=== PATIENT | male | born 1995 | race Two or more races ===

== ENCOUNTER 2017-04-13 18:10 | Emergency (ER) | payer SELFPAY ==
[~2017-04-13] VITALS: Ht 157.5 cm; Wt 73.0 kg
[2017-04-13 18:35] VITALS: BP 123/72
== END 2017-04-13 23:25 | disposition left against medical advice (07) ==
LOC: ER 18:10
DX: M79.671 Pain in right foot (principal); Z53.21 Procedure and treatment not carried out due to patient leaving prior to being seen by health care provider

== ENCOUNTER 2018-04-27 23:32 | Emergency (ER) | payer SELFPAY ==
[~2018-04-27] VITALS: Ht 157.5 cm; Wt 81.6 kg
[2018-04-27 23:34] VITALS: BP 122/76
== END 2018-04-28 00:30 | disposition left against medical advice (07) ==
LOC: ER 23:32
DX: R10.30 Lower abdominal pain, unspecified (principal); Z53.21 Procedure and treatment not carried out due to patient leaving prior to being seen by health care provider

== ENCOUNTER 2024-03-02 08:07 | Emergency (ER) | payer MEDICAID ==
[~2024-03-02] VITALS: Ht 170.2 cm; Wt 95.0 kg
[2024-03-02 08:15] VITALS: BP 117/73; PULSE 85; RESP 18; TEMP 97.7; O2SAT 98
[2024-03-02 08:54] LABS: BASOPHILS % 0.4 % (0.0-2.0); EOSINOPHILS % 0.4 % (0.0-5.0); HEMATOCRIT. 54.2 % (42.0-52.0); HEMOGLOBIN. 17.8 g/dL (14.0-18.0); LYMPHOCYTES % 15.1 % (20.0-50.0); MEAN CORPUSCULAR HEMOGLOBIN 30.2 pg (28.0-32.0); MEAN CORPUSCULAR HGB CONC 32.9 g/dL (31.0-37.0); MEAN CORPUSCULAR VOLUME 91.7 fL (80.0-94.0); MEAN PLATELET VOLUME 9.1 fl (7.4-10.4); MONOCYTES % 4.7 % (2.0-8.0); NEUTROPHILS % 79.4 % (40.0-76.0); PLATELET 175 x1000/uL (130-400); RED BLOOD CELL COUNT 5.91 mill/uL (4.7-6.1); RED CELL DISTRIBUTION WIDTH 14.1 % (11.6-14.6); WHITE BLOOD COUNT 6.5 x1000/uL (4.5-11.0)
[2024-03-02 09:13] LABS: CHLORIDE 105 mEq/L (98-107); POTASSIUM 4.2 mEq/L (3.5-5.1); SODIUM 139 mEq/L (136-145)
[2024-03-02 09:14] LABS: CARBON DIOXIDE 21 mEq/L (21-32)
[2024-03-02 09:19] LABS: GLUCOSE 120 mg/dL (70-105)
[2024-03-02 09:20] LABS: UREA NITROGEN BLOOD 9 mg/dL (9-23)
[2024-03-02 09:21] LABS: ALANINE AMINOTRANSFERASE 17 IU/L (10-49); ALBUMIN 4.8 g/dL (3.2-4.8); ASPARTATE AMINOTRANSFERASE 20 IU/L (<34)
[2024-03-02 09:22] LABS: BILIRUBIN DIRECT 0.3 mg/dL (<=3.0); BILIRUBIN TOTAL 0.9 mg/dL (0.1-1.0)
[2024-03-02] MEDS: ONDANSETRON 4MG ODT PO NR (10:00)
[2024-03-02] MEDS ORDERED: FAMOTIDINE 20MG TABLET PO ONE (10:00)
[2024-03-02] MEDS: DICYCLOMINE 10 MG/5 ML ORAL SYR PO ONE (10:00)
[2024-03-02] MEDS ORDERED: MAGNESIUM/ALUMINUM HYDROXIDE/SIMETHICONE 30ML UDC PO ONE (10:00)
[2024-03-02] MEDS: MAGNESIUM/ALUMINUM HYDROXIDE/SIMETHICONE 30ML UDC PO NR (11:45)
[2024-03-02] MEDS: FAMOTIDINE 20MG TABLET PO NR (11:45)
== END 2024-03-02 11:56 | disposition home or self-care (01) ==
LOC: ER 08:07
DX: K29.70 Gastritis, unspecified, without bleeding (principal); F12.90 Cannabis use, unspecified, uncomplicated; Z98.890 Other specified postprocedural states
CPT/HCPCS: 99284; 80076; 80048; 85025; 36415; Q0162

== ENCOUNTER 2025-04-01 11:53 | Emergency (ER) | payer MEDICAID ==
[~2025-04-01] VITALS: Ht 165.1 cm; Wt 82.0 kg
[2025-04-01 12:02] VITALS: TEMP 36.9; O2SAT 97
[2025-04-01 13:15] LABS: BASOPHILS % 1.2 % (0.0-2.0); EOSINOPHILS % 2.6 % (0.0-5.0); HEMATOCRIT. 51.9 % (42.0-52.0); HEMOGLOBIN. 17.3 g/dL (14.0-18.0); LYMPHOCYTES % 49.5 % (20.0-50.0); MEAN PLATELET VOLUME 9.0 fl (7.4-10.4); MONOCYTES % 8.1 % (2.0-8.0); NEUTROPHILS % 38.6 % (40.0-76.0); PLATELET 163 x1000/uL (130-400); RED BLOOD CELL COUNT 5.77 mill/uL (4.7-6.1); RED CELL DISTRIBUTION WIDTH 13.9 % (11.6-14.6)
[2025-04-01] MEDS: IBUPROFEN 800MG TABLET PO ONE (13:16)
[2025-04-01 13:26] LABS: CLARITY URINE CLEAR (CLEAR); COLOR URINE YELLOW (YELLOW); GLUCOSE URINE NEGATIVE (NEGATIVE); KETONES URINE NEGATIVE (NEGATIVE); LEUKOCYTE ESTERASE URINE NEGATIVE (NEGATIVE); NITRITE URINE NEGATIVE (NEGATIVE); OCCULT BLOOD URINE NEGATIVE (NEGATIVE); PH URINE 7.0 (4.5-8.0); PROTEIN URINE NEGATIVE (NEGATIVE); SPECIFIC GRAVITY URINE 1.017 (1.005-1.030); UROBILINOGEN URINE 1.0 E.U./dL (0.2-1.0)
[2025-04-01 13:27] LABS: CREATININE 1.2 mg/dL (0.6-1.3); UREA NITROGEN BLOOD 13 mg/dL (9-23)
[2025-04-01 13:28] LABS: TROPONIN I HIGH SENSITIVITY < 4 ng/L (3.0-53)
[2025-04-01 13:29] LABS: ASPARTATE AMINOTRANSFERASE 27 IU/L (<34); BILIRUBIN DIRECT 0.1 mg/dL (<=3.0); BILIRUBIN TOTAL 0.6 mg/dL (0.1-1.0); PROTEIN TOTAL 8.2 g/dL (6.0-8.3)
[2025-04-01] MEDS ORDERED: AZIT250T12 MT (14:38)
[2025-04-01] MEDS ORDERED: IBUP-2030 MT (14:38)
[2025-04-01] MEDS ORDERED: DOCU-138 MT (14:39)
[2025-04-01 14:53] VITALS: BP 127/95; PULSE 63; RESP 18; O2SAT 100
== END 2025-04-01 15:00 | disposition home or self-care (01) ==
LOC: ER 11:53
DX: M54.6 Pain in thoracic spine (principal); Z79.899 Other long term (current) drug therapy; Z91.014 Allergy to mammalian meats; Z98.890 Other specified postprocedural states
CPT/HCPCS: 99285; 71260; 71045; 80076; 80048; 81003; 83690; 85025; 84484; 36415; 93005; Q9967